=== PATIENT | female | born 1955 | race Caucasian/White ===

== ENCOUNTER 2019-08-11 19:33 | Emergency (ER) | payer BC, OTHER ==
[2019-08-11] MEDS ORDERED: MORPHINE 4 MG/ML SYR ONE (20:59)
[2019-08-11] MEDS ORDERED: MAGNE/ALUM HYDROXD 30 ML UCUP ONE (20:59)
[2019-08-11] MEDS ORDERED: ONDANSETRON 4 MG/2 ML VIAL ONE (20:59)
[2019-08-11] MEDS ORDERED: LIDOCAINE VISCOUS 2% SOLN 15 ML UDC ONE (21:00)
[2019-08-11] MEDS ORDERED: NA CHLORIDE 0.9% 1,000 ML ONE (21:00)
[2019-08-11] MEDS ORDERED: FAMOTIDINE 20 MG/2 ML VIAL IV ONE (21:00)
[2019-08-11 21:04] LABS: Basophils % 0.7 % (0-1.3); Hematocrit 36.3 % (36.0-45.0); Lymphocytes % 25.9 % (15.3-44.8); MPV 10.5 fL (7.6-11.3); RBC Red Blood Cell Count 4.34 M/uL (3.86-4.86)
[2019-08-11 21:21] LABS: ALT/SGPT 29 U/L (12-78); Albumin 3.3 g/dL (3.4-5.0); Alkaline Phosphatase 128 U/L (45-117); BUN Blood Urea Nitrogen 14 mg/dL (7-18); Bicarbonate 27 mmol/L (21-32); Bilirubin Direct < 0.1 mg/dL (0-0.2); Bilirubin Total 0.4 mg/dL (0.2-1.0); Glucose Level 245 mg/dL (74-106); Lipase 79 U/L (73-393); Potassium 3.9 mmol/L (3.5-5.1); Protein, Total 7.4 g/dL (6.4-8.2); Sodium Level 140 mmol/L (136-145)
[2019-08-11 21:22] LABS: AST/SGOT 16 U/L (15-37)
[2019-08-11] MEDS ORDERED: PROMETHAZINE INJ 25 MG/ML AMP ONE (23:16)
[2019-08-12 00:22] VITALS: TEMP 97.4
[2019-08-12 00:27] VITALS: BP 102/87; O2SAT 99
--- NOTE | 2019-08-13 06:13 | EKG ---
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
--- NOTE | 2019-08-18 12:46 | EDPHYS ---
Physician Documentation [facility] Name: Dickson Gaxiola Age: 63 yrs Sex: Female : 1955 Arrival Date: 08/11/2019 Time: 19:34 Bed 17 Private MD: ED Physician Anita Rondon HPI: 08/10 20:33 This 63 yrs old Female presents to ER via Ambulatory with complaints of Sore ma2 Throat, Cant keep Anything down. 20:33 The patient presents with. The patient describes throat pain as burning. Onset: The ma2 symptoms/episode began/occurred gradually, 2 day(s) ago. Severity of symptoms: At their worst the symptoms were mild, in the emergency department the symptoms are unchanged. Associated signs and symptoms: Pertinent positives: nausea, Pertinent negatives diarrhea, dysphagia, fever, flu-like symptoms. The patient has not experienced similar symptoms in the past. Historical: - Allergies: 20:00 No Known Allergies; mg2 - Home Meds: 20:00 ropinirole 1 mg oral tab 1 tab [Active]; mg2 - PMHx: 20:00 Diabetes - NIDDM; Gastric Reflux; mg2 - PSHx: 20:00 Gastric Bypass; mg2 - Immunization history:: Adult Immunizations up to date. - Social history:: Smoking status: Patient denies any tobacco usage or history of. Patient/guardian denies using alcohol, street drugs, The patient lives alone, with family. - Family history:: not pertinent. - Hospitalizations: : No recent hospitalization is reported. ROS: 20:33 Constitutional: Negative for fever, chills, and weight loss. ma2 20:33 All other systems are negative. Exam: 20:33 Constitutional: This is a well developed, well nourished patient who is awake, alert, ma2 and in no acute distress. Head/Face: Normocephalic, atraumatic. Eyes: Pupils equal round and reactive to light, extra-ocular motions intact. Lids and lashes normal. Conjunctiva and sclera are non-icteric and not injected. Cornea within normal limits. Periorbital areas with no swelling, redness, or edema. ENT: Nares patent. No nasal discharge, no septal abnormalities noted. Tympanic membranes are normal and external auditory canals are clear. Oropharynx with no redness, swelling, or masses, exudates, or evidence of obstruction, uvula midline. Mucous membranes moist. Neck: Trachea midline, no thyromegaly or masses palpated, and no cervical lymphadenopathy. Supple, full range of motion without nuchal rigidity, or vertebral point tenderness. No Meningismus. Chest/axilla: Normal chest wall appearance and motion. Nontender with no deformity. No lesions are appreciated. Cardiovascular: Regular rate and rhythm with a normal S1 and S2. No gallops, murmurs, or rubs. Normal PMI, no JVD. No pulse deficits. Respiratory: Lungs have equal breath sounds bilaterally, clear to auscultation and percussion. No rales, rhonchi or wheezes noted. No increased work of breathing, no retractions or nasal flaring. Abdomen/GI: epigastric ttp, Soft, non-tender, with normal bowel sounds. No distension or tympany. No guarding or rebound. No evidence of tenderness throughout. Back: No spinal tenderness. No costovertebral tenderness. Full range of motion. Skin: Warm, dry with normal turgor. Normal color with no rashes, no lesions, and no evidence of cellulitis. MS/ Extremity: Pulses equal, no cyanosis. Neurovascular intact. Full, normal range of motion. Neuro: Awake and alert, GCS 15, oriented to person, place, time, and situation. Cranial nerves II-XII grossly intact. Motor strength 5/5 in all extremities. Sensory grossly intact. Cerebellar exam normal. Normal gait. Vital Signs: 19:57 Pulse 85; Resp 17 S; Temp 97.4(TE); Pulse Ox 100% on R/A; Weight 104.33 kg (R); Height mg2 5 ft. 11 in. (180.34 cm) (R); Pain 6/10; 20:01 BP 142 / 67; dh4 21:00 BP 127 / 60; Pulse 78; Resp 18; Pulse Ox 97% on R/A; wh 22:00 BP 106 / 57; Pulse 78; Resp 18; Pulse Ox 96% on R/A; wh 23:00 BP 102 / 87; Pulse 81; Resp 18; Pulse Ox 99% on R/A; wh 19:57 Body Mass Index 32.08 (104.33 kg, 180.34 cm) mg2 MDM: 20:02 Patient medically screened. ma2 20:33 Differential diagnosis: bronchitis, caustic ingetion, gastroesophageal reflux disease, de2 upper respiratory infection. 23:21 Data reviewed: vital signs, nurses notes. Counseling: I had a detailed discussion with [facility] the patient and/or guardian regarding: the historical points, exam findings, and any diagnostic results supporting the discharge/admit diagnosis, the presence of at least one elevated blood pressure reading (>120/80) during this emergency department visit, the need for outpatient follow up. Response to treatment: the patient's symptoms have resolved after treatment. 08/10 20: Order name: Basic Metabolic Panel; Complete Time: 22:29 [facility] 08/10 20:31 Order name: CBC with Diff; Complete Time: 21:16 [facility] 08/10 20: Order name: Hepatic Function; Complete Time: : [facility] 08/10 20: Order name: Lipase; Complete Time: : [facility] 08/10 20:35 Order name: Troponin (emerg Dept Use Only); Complete Time: : [facility] 08/10 22:31 Order name: Troponin (emerg Dept Use Only): 2 hrs repeat, re-draw blood please; [facility] Complete Time: 23:21 08/10 20:31 Order name: IV Saline Lock; Complete Time: 21:00 [facility] 08/10 20:31 Order name: Labs collected and sent; Complete Time: 21:00 [facility] 08/10 20:35 Order name: EKG - Nurse/Tech; Complete Time: 21:00 [facility] Administered Medications: 20:51 Drug: NS 0.9% 1000 ml Route: IV; Rate: 1 bolus; Site: right antecubital; 21:37 Follow up: Response: No adverse reaction; IV Status: Completed infusion 20:53 Drug: GI Cocktail without - (Maalox Suspension 30 ml, Lidocaine Liquid 2 % 15 wh ml) Route: PO; 21:37 Follow up: Response: No adverse reaction; Pain is decreased wh 20:55 Drug: Pepcid 20 mg Route: IVP; Site: right antecubital; wh 21:38 Follow up: Response: No adverse reaction; Pain is decreased wh 20:57 Drug: morphine 4 mg {Note: RASS 0.} Route: IVP; Site: right antecubital; 21:38 Follow up: Response: No adverse reaction; Pain is decreased; RASS: Alert and Calm (0) 20:59 Drug: Zofran (Ondansetron) 4 mg Route: IVP; Site: right antecubital; 21:38 Follow up: Response: No adverse reaction; Nausea is decreased 23:19 Drug: Phenergan 25 mg Route: IVP; Site: right antecubital; 23:52 Follow up: Response: No adverse reaction; Nausea is decreased Disposition: 08/11/19 23:22 Discharged to Home. Impression: Abdominal tenderness, unspecified site. - Condition is Stable. - Discharge Instructions: Abdominal Pain, Adult. - Prescriptions for lidocaine HCl 2 % Mucous Membrane solution - take 15 milliliter by ORAL route every 3 hours; 300 milliliter. Zofran 4 mg Oral Tablet - take 1 tablet by ORAL route every 12 hours As needed; 20 tablet. Pepcid 20 mg Oral Tablet - take 1 tablet by ORAL route once daily for 10 days; 10 tablet. - Medication Reconciliation Form, Thank You Letter, Antibiotic Education, Prescription Opioid Use form. - Follow up: Private Physician; When: Tomorrow; Reason: Continuance of care. Signatures: Dispatcher [employer] EDMS Jose Miguel Argueta Anita Rondon MD MD ma2 Leonardo Bryant RN RN mg2 Corrections: (The following items were deleted from the chart) 23:54 23:22 08/11/2019 23:22 Discharged to Home. Impression: Abdominal tenderness, wh unspecified site. Condition is Stable. Discharge Instructions: Abdominal Pain, Adult. Prescriptions for lidocaine HCl 2 % Mucous Membrane solution - take 15 milliliter by ORAL route every 3 hours; 300 milliliter, Zofran 4 mg Oral Tablet - take 1 tablet by ORAL route every 12 hours As needed; 20 tablet, Pepcid 20 mg Oral Tablet - take 1 tablet by ORAL route once daily for 10 days; 10 tablet. and Forms are Medication Reconciliation Form, Thank You Letter, Antibiotic Education, Prescription Opioid Use. Follow up: Private Physician; When: Tomorrow; Reason: Continuance of care. ma2
--- NOTE | 2019-08-18 12:46 | ER ---
Nurse's Notes [facility] Name: Dickson Gaxiola Age: 63 yrs Sex: Female : 1955 Arrival Date: 08/11/2019 Time: 19:34 Bed 17 Private MD: Diagnosis: Abdominal tenderness, unspecified site Presentation: 08/10 19:57 Chief complaint: Patient states: N/V since 0900 today. Reports epigastric pain. History mg2 of acid reflux, takes Ropinirole for it, but was not able to take med today due to vomiting. Denies fever, cough, chest pains. Coronavirus screen: Proceed with normal triage. Patient denies a cough. Patient denies shortness of breath or difficulty breathing. Patient denies measured and/or subjective temperature greater than 100.4F prior to today's visit. Patient denies travel on a cruise ship or to a country the [facility] currently lists as an affected area. Patient denies contact with known and/or suspected case of COVID-19. Ebola Screen: Patient negative for fever greater than or equal to 101.5 degrees Fahrenheit, and additional compatible Ebola Virus Disease symptoms Patient denies exposure to infectious person. Patient denies travel to an Ebola-affected area in the 21 days before illness onset. No symptoms or risks identified at this time. Initial Sepsis Screen: Does the patient meet any 2 criteria? No. Patient's initial sepsis screen is negative. Does the patient have a suspected source of infection? No. Patient's initial sepsis screen is negative. Risk Assessment: Do you want to hurt yourself or someone else? Patient reports no desire to harm self or others. Onset of symptoms was August 11, 2019. 19:57 Method Of Arrival: Ambulatory mg2 19:57 Acuity: TERRIE 3 mg2 Historical: - Allergies: 20:00 No Known Allergies; mg2 - Home Meds: 20:00 ropinirole 1 mg oral tab 1 tab [Active]; mg2 - PMHx: 20:00 Diabetes - NIDDM; Gastric Reflux; mg2 - PSHx: 20:00 Gastric Bypass; mg2 - Immunization history:: Adult Immunizations up to date. - Social history:: Smoking status: Patient denies any tobacco usage or history of. Patient/guardian denies using alcohol, street drugs, The patient lives alone, with family. - Family history:: not pertinent. - Hospitalizations: : No recent hospitalization is reported. Screenin:00 Abuse screen: Denies threats or abuse. Denies injuries from another. Nutritional wh screening: No deficits noted. Tuberculosis screening: No symptoms or risk factors identified. Fall Risk None identified. Assessment: 20:00 General: Appears in no apparent distress. Behavior is calm, cooperative, appropriate wh for age. Pain: Complains of pain in epigastric area Pain does not radiate. Pain currently is 8 out of 10 on a pain scale. Quality of pain is described as burning, Pain began suddenly. Neuro: Level of Consciousness is awake, alert, obeys commands, Oriented to person, place, time, situation, Appropriate for age. Cardiovascular: Heart tones S1 S2 Rhythm is regular. Respiratory: Airway is patent Respiratory effort is even, unlabored, Respiratory pattern is regular, symmetrical, Breath sounds are clear bilaterally. GI: Abdomen is flat, non-distended, Bowel sounds present X 4 quads. Abd is soft and non tender X 4 quads. : No signs and/or symptoms were reported regarding the genitourinary system. EENT: Throat is pink. Derm: Skin is intact, is healthy with good turgor, Skin is pink, warm \T\ dry. normal. Musculoskeletal: Circulation, motion, and sensation intact. 21:10 Reassessment: Patient appears in no apparent distress at this time. No changes from previously documented assessment. Patient and/or family updated on plan of care and expected duration. Pain level reassessed. Patient is alert, oriented x 3, equal unlabored respirations, skin warm/dry/pink. 22:15 Reassessment: Patient appears in no apparent distress at this time. No changes from previously documented assessment. Patient and/or family updated on plan of care and expected duration. Pain level reassessed. Patient is alert, oriented x 3, equal unlabored respirations, skin warm/dry/pink. 23:50 Reassessment: Patient appears in no apparent distress at this time. No changes from previously documented assessment. Patient and/or family updated on plan of care and expected duration. Pain level reassessed. Patient is alert, oriented x 3, equal unlabored respirations, skin warm/dry/pink. Patient states feeling better. Patient states symptoms have improved. Vital Signs: 19:57 Pulse 85; Resp 17 S; Temp 97.4(TE); Pulse Ox 100% on R/A; Weight 104.33 kg (R); Height mg2 5 ft. 11 in. (180.34 cm) (R); Pain 6/10; 20:01 BP 142 / 67; dh4 21:00 BP 127 / 60; Pulse 78; Resp 18; Pulse Ox 97% on R/A; wh 22:00 BP 106 / 57; Pulse 78; Resp 18; Pulse Ox 96% on R/A; wh 23:00 BP 102 / 87; Pulse 81; Resp 18; Pulse Ox 99% on R/A; wh 19:57 Body Mass Index 32.08 (104.33 kg, 180.34 cm) mg2 ED Course: 19:34 Patient arrived in ED. ds1 19:59 Triage completed. mg2 20:00 Arm band placed on right wrist. mg2 20:00 Patient has correct armband on for positive identification. Bed in low position. Call light in reach. Side rails up X 1. Pulse ox on. NIBP on. 20:02 Anita Rondon MD is Attending Physician. ma2 20:06 Jose Miguel Argueta is Primary Nurse. 20:52 Inserted saline lock: 20 gauge in right antecubital area, using aseptic technique. 4 23:52 No provider procedures requiring assistance completed. IV discontinued, intact, bleeding controlled, No redness/swelling at site. Administered Medications: 20:51 Drug: NS 0.9% 1000 ml Route: IV; Rate: 1 bolus; Site: right antecubital; 21:37 Follow up: Response: No adverse reaction; IV Status: Completed infusion 20:53 Drug: GI Cocktail without - (Maalox Suspension 30 ml, Lidocaine Liquid 2 % 15 wh ml) Route: PO; 21:37 Follow up: Response: No adverse reaction; Pain is decreased 20:55 Drug: Pepcid 20 mg Route: IVP; Site: right antecubital; 21:38 Follow up: Response: No adverse reaction; Pain is decreased 20:57 Drug: morphine 4 mg {Note: RASS 0.} Route: IVP; Site: right antecubital; 21:38 Follow up: Response: No adverse reaction; Pain is decreased; RASS: Alert and Calm (0) 20:59 Drug: Zofran (Ondansetron) 4 mg Route: IVP; Site: right antecubital; 21:38 Follow up: Response: No adverse reaction; Nausea is decreased 23:19 Drug: Phenergan 25 mg Route: IVP; Site: right antecubital; 23:52 Follow up: Response: No adverse reaction; Nausea is decreased Outcome: 23:22 Discharge ordered by . russell 23:53 Discharged to home ambulatory. 23:53 Condition: stable 23:53 Discharge instructions given to patient, Instructed on discharge instructions, follow up and referral plans. medication usage, POC Demonstrated understanding of instructions, follow-up care, medications, POC Prescriptions given X 3. 23:54 Patient left the ED. Signatures: Freda Azul ds1 Jose Miguel Argueta Anita Rondon MD MD ma2 Leonardo Bryant RN RN [facility] [place] [place] Roscoe Li 4
== END 2019-08-11 23:54 | disposition home or self-care (01) ==
LOC: ER 19:33
DX: R10.819 Abdominal tenderness, unspecified site (principal); E11.9 Type 2 diabetes mellitus without complications
CPT/HCPCS: 96361; 93005; 85025; 80048; 36415; 80076; 84484 ×2; 83690; 96375; 96374; 99284; J2550; J7030; J2405

== ENCOUNTER 2024-01-17 10:13 | Emergency (ER) | payer OTHER ==
[2024-01-17 10:51] LABS: Absolute Eosinophils 0.2 K/uL (0-0.5); Absolute Lymphocytes (CBC) 1.1 K/uL (0.7-4.9); Absolute Monocytes 0.3 K/uL (0.1-1.3); Absolute Neutrophil 5.5 K/uL (1.8-8.0); Basophils % 0.2 % (0-1.3); Eosinophils % 2.2 % (0-4.4); Hematocrit 36.3 % (36.0-45.0); Hemoglobin 11.6 g/dL (12.0-15.0); Lymphocytes % 15.1 % (15.3-44.8); MCH 28.5 pg (27.0-35.0); MCV 88.9 fL (80-100); MPV 9.3 fL (7.6-11.3); Monocytes % 3.9 % (3.3-12.3); Neutrophils % 78.6 % (41.7-73.7); Platelets 174 thou/uL (152-406); RBC Red Blood Cell Count 4.08 M/uL (3.86-4.86); Red Cell Distribution Width 15.1 % (12.1-15.2)
[2024-01-17 11:05] LABS: Anion Gap 5.4 mEq/L (5.0-15.0); Potassium 3.4 mEq/L (3.5-5.1)
[2024-01-17] MEDS ORDERED: GLUCAGON 1 MG/VIAL ONE (11:26)
[2024-01-17] MEDS ORDERED: HYDROCORTISONE SUC 100 MG INJ ONE (13:20)
--- NOTE | 2024-01-17 14:00 | EDPHYS ---
Physician Documentation [facility] Name: Dickson Gaxiola Age: 68 yrs Sex: Female : 1955 Arrival Date: 01/17/2024 Time: 10:13 Bed 16 Private MD: ED Physician Heriberto Garcia HPI: 01/16 10:17 This 68 yrs old Female presents to ER via Unassigned with complaints of low blood sugar.rn 10:17 The patient or guardian reports hypoglycemia, that was potentially precipitated by no rn particular event. Onset: The symptoms/episode began/occurred this morning. Current symptoms: In the emergency department the patient's symptoms have improved. The patient has experienced similar episodes in the past. Patient sent over here from wound care for evaluation of of low blood sugar. Patient takes multiple medications for her diabetes and did not eat this morning. She states this happens to her monthly. They did not give her anything prior to bringing her to the emergency room. Patient did not lose consciousness. No fever or chills. Reports swelling to legs has improved but still dealing with chronic wound for months to the left lower extremity.. Historical: - Allergies: 10:33 No Known Allergies; rs5 - PMHx: 10:33 Diabetes - NIDDM; Gastric Reflux; rs5 - PSHx: 10:33 None; rs5 - Immunization history:: Adult Immunizations up to date. - Infectious Disease History:: Denies. - Family history:: not pertinent. - Hospitalizations: : No recent hospitalization is reported. - Social history:: Smoking status: Patient denies any tobacco usage or history of. ROS: 10:17 Constitutional: Negative for fever, chills, and weight loss, Cardiovascular: Negative rn for chest pain, palpitations Respiratory: Negative for shortness of breath, cough, wheezing, and pleuritic chest pain, MS/Extremity: Positive for chronic wound to the left lower extremity Neuro: Negative for headache, weakness, numbness, tingling, and seizure, Exam: 10:17 Constitutional: This is a well developed, well nourished patient who is awake, alert, rn and in no acute distress. Cardiovascular: Regular rate and rhythm. No pulse deficits. Respiratory: Speaking full sentences, unlabored. No increased work of breathing, no retractions or nasal flaring. MS/ Extremity: Bilateral lower extremity edema, chronic lymphedema changes with superficial wounds to the left pretibial region, no purulence but mild surrounding erythema. Neuro: Awake and alert, GCS 15 Vital Signs: 10:20 BP 155 / 81; Pulse 70; Resp 17; Temp 98(O); Pulse Ox 98% ; rs5 12:01 BP 145 / 84; Pulse 70; Resp 17; Pulse Ox 99% on R/A; rs5 12:01 BP 133 / 79; Pulse 74; Resp 17; Pulse Ox 98% on R/A; rs5 MDM: 10:16 Medical Screening Exam initiated rn 13:58 Differential diagnosis: hypoglycemic episode. Data reviewed: vital signs, nurses notes, journalism instructor test result(s), and as a result, I will discharge patient. Counseling: I had a detailed discussion with the patient and/or guardian regarding the historical points, exam findings, and any diagnostic results supporting the discharge/admit diagnosis, lab results, the need for outpatient follow up, to return to the emergency department if symptoms worsen or persist or if there are any questions or concerns that arise at home. Special discussion: I discussed with the patient/guardian in detail that at this point there is no indication for admission to the hospital. It is understood, however, that if the symptoms persist or worsen the patient needs to return immediately for re-evaluation. ED course: Glucose steady, currently above 120. Patient feels great and has food now. Patient is planning on going back to wound care for the initial evaluation that she had scheduled earlier today.. 01/16 10:17 Order name: CBC with Diff; Complete Time: 11:13 rn 01/16 10:17 Order name: Basic Metabolic Panel; Complete Time: 11:13 rn 01/16 11:23 Order name: Glucose, Ancillary Testing; Complete Time: 11:23 EDMS 01/16 11:36 Order name: Glucose, Ancillary Testing; Complete Time: 11:45 EDMS 01/16 12:22 Order name: Glucose, Ancillary Testing; Complete Time: 13:15 EDMS 01/16 13:37 Order name: Glucose, Ancillary Testing; Complete Time: 13:55 EDMS 01/16 10:17 Order name: PO challenge; Complete Time: 11:16 rn 01/16 10:17 Order name: Glucose Level; Complete Time: 11:16 rn 01/16 10:17 Order name: IV Start; Complete Time: 11:16 rn Administered Medications: 11:25 Drug: Glucagon IVP 1 mg IVP once Route: IVP; Site: left hand; rs5 13:05 Follow up: Response: No adverse reaction rs5 13:20 Drug: Solu-CORTEF IVP 50 mg IVP once Route: IVP; Site: left hand; rs5 13:40 Follow up: Response: No adverse reaction rs5 Disposition Summary: 01/17/24 14:00 Discharge Ordered Notes: Location: Home rn Problem: new rn Symptoms: have improved rn Condition: Stable rn Diagnosis - Hypoglycemia, unspecified rn - Cellulitis of left lower limb rn Followup: rn - With: Private Physician - When: As needed - Reason: Recheck today's complaints, Re-evaluation by your physician Discharge Instructions: - Discharge Summary Sheet rn - Cellulitis, Adult rn - Hypoglycemia rn - Blood Glucose Monitoring, Adult rn Forms: - Medication Reconciliation Form rn - 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 EDMS EDMS 10:17 10:17 BASIC METABOLIC PANEL+C.LAB.BRZ ordered. EDMS EDMS
--- NOTE | 2024-01-17 14:00 | ER ---
Nurse's Notes [facility] Name: Dickson Gaxiola Age: 68 yrs Sex: Female : 1955 Arrival Date: 01/17/2024 Time: 10:13 Bed 16 Private MD: Diagnosis: Hypoglycemia, unspecified;Cellulitis of left lower limb Presentation: 01/16 10:20 Chief complaint: EMS states: Blood sugar readings in 30's approximately 15 min prior to rs5 arrival, pt reports consuming a few crackers en route, brought to ER via wheelchair by coworkers, currently alert and oriented. 10:20 Coronavirus screen: At this time, the client does not indicate any symptoms associated rs5 with coronavirus-19. Ebola Screen: No symptoms or risks identified at this time. Initial Sepsis Screen: Does the patient meet any 2 criteria? No. Patient's initial sepsis screen is negative. Does the patient have a suspected source of infection? No. Patient's initial sepsis screen is negative. Risk Assessment: Do you want to hurt yourself or someone else? Patient reports no desire to harm self or others. Onset of symptoms was January 17, 2024. 10:20 Method Of Arrival: Wheelchair rs5 10:20 Acuity: TERRIE 2 rs5 Historical: - Allergies: 10:33 No Known Allergies; rs5 - PMHx: 10:33 Diabetes - NIDDM; Gastric Reflux; rs5 - PSHx: 10:33 None; rs5 - Immunization history:: Adult Immunizations up to date. - Infectious Disease History:: Denies. - Family history:: not pertinent. - Hospitalizations: : No recent hospitalization is reported. - Social history:: Smoking status: Patient denies any tobacco usage or history of. Screenin:17 [facility] ED Fall Risk Assessment (Adult) History of falling in the last 3 months, rs5 including since admission No falls in past 3 months (0 pts) Confusion or Disorientation No (0 pts) Intoxicated or Sedated No (0 pts) Impaired Gait No (0 pts) Mobility Assist Device Used No (0 pt) Altered Elimination No (0 pt) Score/Fall Risk Level 0 - 2 = Low Risk Oriented to surroundings, Maintained a safe environment. Abuse screen: Denies threats or abuse. Nutritional screening: No deficits noted. Tuberculosis screening: No symptoms or risk factors identified. Assessment: 10:17 General: Appears in no apparent distress. comfortable, Behavior is calm, cooperative. rs5 Pain: Denies pain. Neuro: Level of Consciousness is awake, alert, obeys commands, Oriented to person, place, time, situation. Cardiovascular: Patient's skin is warm and dry. Respiratory: Airway is patent Respiratory effort is even, unlabored, Respiratory pattern is regular, symmetrical. 10:17 GI: Abdomen is round non-distended, Abd is soft and non tender X 4 quads. : No signs rs5 and/or symptoms were reported regarding the genitourinary system. EENT: No signs and/or symptoms were reported regarding the EENT system. Derm: Skin is intact, Skin is pink, warm \T\ dry. Musculoskeletal: Range of motion: intact in all extremities. 11:22 Reassessment: Patient and/or family updated on plan of care and expected duration. Pain rs5 level reassessed. Patient is alert, oriented x 3, equal unlabored respirations, skin warm/dry/pink. 12:30 Reassessment: Patient and/or family updated on plan of care and expected duration. Pain rs5 level reassessed. Patient is alert, oriented x 3, equal unlabored respirations, skin warm/dry/pink. 13:33 Reassessment: Patient and/or family updated on plan of care and expected duration. Pain rs5 level reassessed. Patient is alert, oriented x 3, equal unlabored respirations, skin warm/dry/pink. Vital Signs: 10:20 BP 155 / 81; Pulse 70; Resp 17; Temp 98(O); Pulse Ox 98% ; rs5 12:01 BP 145 / 84; Pulse 70; Resp 17; Pulse Ox 99% on R/A; rs5 12:01 BP 133 / 79; Pulse 74; Resp 17; Pulse Ox 98% on R/A; rs5 ED Course: 10:16 Patient arrived in ED. bc6 10:16 Heriberto Garcia MD is Attending Physician. rn 10:17 Patient has correct armband on for positive identification. Placed in gown. Bed in low rs5 position. Call light in reach. Side rails up X2. 10:17 No provider procedures requiring assistance completed. rs5 10:20 Inserted saline lock: 24 gauge in left hand, using aseptic technique. Blood collected. rs5 Flushed with 10 mL NS. 10:40 Provided Education on: discharge instructions . rs5 11:16 [place], RN is Primary Nurse. rs5 11:20 Triage completed. rs5 14:24 IV discontinued, intact, bleeding controlled, No redness/swelling at site. Pressure rs5 dressing applied. Administered Medications: 11:25 Drug: Glucagon IVP 1 mg IVP once Route: IVP; Site: left hand; rs5 13:05 Follow up: Response: No adverse reaction rs5 13:20 Drug: Solu-CORTEF IVP 50 mg IVP once Route: IVP; Site: left hand; rs5 13:40 Follow up: Response: No adverse reaction rs5 Medication: 10:33 VIS not applicable for this client. rs5 Outcome: 14:00 Discharge ordered by . rn 14:24 Discharged to home ambulatory, rs5 14:24 Condition: stable rs5 14:24 Condition: good 14:24 Discharge instructions given to patient, family, Instructed on discharge instructions, follow up and referral plans. Demonstrated understanding of instructions, follow-up care, 14:25 Patient left the ED. rs5 Signatures: Heriberto Garcia MD MD rn Sotelo, Ricky, RN RN rs5 Anaya Luo bc6
[2024-01-17 14:32] VITALS: TEMP 98; O2SAT 98
[2024-01-17 14:33] VITALS: BP 133/79
== END 2024-01-17 14:25 | disposition home or self-care (01) ==
LOC: ER 10:13
DX: E11.649 Type 2 diabetes mellitus with hypoglycemia without coma (principal); L03.116 Cellulitis of left lower limb
CPT/HCPCS: 85025; 80048; 36415; 82947 ×4; 96375; 96374; 99284; J1610; J1720